=== PATIENT | male | born 1985 | race Caucasian/White ===

== ENCOUNTER 2020-04-24 08:43 | Emergency (ER) | payer MEDICAID, SELFPAY ==
[~2020-04-24] VITALS: Ht 162.6 cm; Wt 43.5 kg
[2020-04-24 08:48] VITALS: BP 129/89
--- NOTE | 2020-04-24 08:50 | NUR ---
DR CAMPUZANO AT TENT TO SEE PT
--- NOTE | 2020-04-24 08:56 | NUR ---
34 Y/M PRSENTS TO ED WITH BODY ACHE, HEADACHE, FATIGUE, SUBJECTIVE FEVER, NON PRODUCTIVE COUGH, AND LOSS OF TASTE X 5 DAYS. PT DENIES SOB, N/V/D. PT REPORTS NEIGHBOR AND COWORKERS HAVE BEEN TESTED POSTIVE. PMH- DENIES RX- TYLENOL
--- NOTE | 2020-04-24 09:18 | NUR ---
COVID SWAB COLLECTED, LAB CALLED FOR PICKUP
[2020-04-24 09:20] VITALS: BP 129/89
--- NOTE | 2020-04-26 06:40 | NUR ---
LAB CALLED FOR POSITIVE RESULT OF SARS-COV-2. PT RESULT SHOWN TO DR DALEY AND ADVISE TO CALL AND NOTIFY THE PT ACCORDINGLY PER CDC PROTOCOL AND INSTRUCTIONS. PT LAB RESULTS GIVEN TO DAMIAN WALDROP
== END 2020-04-24 09:20 | disposition home or self-care (01) ==
LOC: EEVIPCON 08:43 → MED 08:43
DX: U07.1 COVID-19 (principal)
CPT/HCPCS: 99283; U0003